=== PATIENT | female | born 1955 | race African-American/Black ===

== ENCOUNTER 2016-09-24 07:31 | Day surgery (SDC) | payer BC ==
[2016-09-23 12:17] LABS: HEMATOCRIT 37.4 % (36.0-48.0); HEMOGLOBIN 12.6 g/dL (12.0-16.0)
[2016-09-23 12:28] LABS: BUN (BLOOD UREA NITROGEN) 10 MG/DL (6-23); CALCIUM, SERUM 8.9 MG/DL (8.5-10.4); CHLORIDE, SERUM 105 MMOL/L (96-112); CO2 (CARBON DIOXIDE) 30 MMOL/L (24-34); CREATININE 0.76 MG/DL (0.55-1.02); GFR AFRICAN AMERICAN 100 ML/MIN (>=60); GFR NON AFRICAN AMERICAN 86 ML/MIN (>=60); POTASSIUM, SERUM 3.7 MMOL/L (3.5-5.3); SODIUM, SERUM 142 MMOL/L (135-148)
[2016-09-23 12:30] LABS: GLUCOSE, SERUM 103 MG/DL (60-99)
--- NOTE | ~2016-09-24 | OP ---
Record Of Operation [facility] [address] [place]. 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 ESTIMATED BLOOD LOSS: Less than 5 mL. DISPOSITION: Stable recovery room. ANESTHESIA: General with interscalene block augmentation for postoperative pain control. PREOPERATIVE DIAGNOSES: 1. Left shoulder pain. 2. Partial thickness rotator cuff tear. 3. Subacromial impingement. 4. Degenerative labrum. POSTOPERATIVE DIAGNOSES: 1. Left shoulder pain. 2. High-grade partial thickness articular sided/intralaminar supraspinatus rotator cuff tear. 3. Degenerative labral tear. 4. Glenohumeral joint chondromalacia/early osteoarthritis. 5. Subacromial impingement. 6. Acromioclavicular joint osteoarthritis with impingement. OPERATIVE PROCEDURES: 1. Left shoulder examination under anesthesia. 2. Left shoulder arthroscopy. 3. High-grade partial thickness articular sided and intralaminar supraspinatus rotator cuff repair. 4. Shaving chondroplasty of the glenohumeral joint. 5. Extensive debridement of degenerative labral tears anteriorly, superiorly, and posteriorly. 6. Subacromial decompression. 7. Distal clavicular coplaning. OPERATIVE NOTE: The diagnoses listed above as well as recommended surgical procedure, risks, benefits, thereof discussed in full detail with Analilia Lindsey and family on the morning of 09/24/2016. The patient and family asked appropriate questions, which were answered to their satisfaction. Informed consent was signed, witnessed, and placed in the chart. The left upper extremity was marked for confirmation and an interscalene block was placed by the anesthesia team with good success. The patient was then wheeled to the operative arena, where general anesthesia was administered. The patient was placed in lateral decubitus Record Of Operation [facility] [address] [place]. [address] NAME: TODD LINDSEY : 59 STATUS : [facility] PAT#: [id number] AGE: 60 ADM/REG DATE : 09/24/16 MR#: [id number] REPORT SERV DATE: 09/28/16 DICTATED BY: JOAQUIM DUMAS DATE: 09/25/16 REPORT STATUS : Draft TRANSCRIBED BY: CATRACHO DATE: 09/25/16 position with an axillary roll in place. All nonoperative extremities were well padded and secured for the duration of the case. The left upper extremity was examined under anesthesia and then placed in five pounds of longitudinal traction and prepped and draped in typical orthopedic sterile fashion. A surgical pause was performed confirming both the correct patient as well as the proper surgical site and procedure. All present were in agreement. The patient received appropriate antibiotics for perioperative antibiosis. All standard anatomic landmarks as well as arthroscopic portal sites were demarcated using a sterile marking pen. Then 15 mL of 0.5% Marcaine with epinephrine was injected into standard posterior, lateral, and anterior portal sites. An 11 blade was used to establish the posterior portal through which an arthroscopic cannula and blunt obturator were inserted atraumatically into the glenohumeral joint. A full diagnostic arthroscopy was performed. There was evidence for degenerative tearing of the labrum anteriorly, superiorly, and posteriorly. The biceps itself was in decent shape with mild tenosynovitis, but no evidence for significant tear or instability. The articular surface of the supraspinatus did show evidence for high-grade partial thickness tear with an unstable flap as well as a larger interlaminar split. The subscapularis, middle, and inferior glenohumeral ligaments were in decent condition. There was evidence for early degenerative glenohumeral joint osteoarthritis/chondromalacia. This was grade 2/3 in several areas. Using an inside-out approach, an anterior portal was established and dammed cannula was placed. Arthroscopic shaving chondroplasty was conducted of the glenohumeral joint removing all unstable chondral flaps and polishing the articular surface as smooth as possible. The labrum also showed evidence for degenerative tearing. A shaver was used to perform extensive debridement of all damaged labral tissue, trimming the labrum back down to a smooth rim flush with the articular surface of the glenoid. The under surface of the rotator cuff was then debrided of all damaged tissue and fully probed. There was a large intralaminar split traversed medially. A PDS suture was passed in a trans-cuff technique through the rotator cuff tendon bridging the intralaminar split. These sutures were then drawn out the subacromial space. The arthroscope was then withdrawn from the glenohumeral joint and inserted into the subacromial space. Using an outside-in spinal needle technique, a lateral portal was established and dammed cannula was placed. The bursal surface the rotator cuff showed moderate abrasion from subacromial impingement, but no evidence for full-thickness tearing. Our previously placed trans-cuff sutures were identified and tied off completing our rotator cuff repair and closing down the intralaminar split quite nicely. Next, all soft tissues were removed from the under surface of the acromion as well as the acromioclavicular joint. There was evidence for mechanical impingement on the bursal surface of the rotator cuff tendon as well as downward reflection of the distal clavicle. A subacromial decompression was performed without difficulty. A distal clavicular coplaning was conducted as well. This opened up the subacromial space nicely. At this juncture, all arthroscopic instruments, excess fluid, and debris were removed from the subacromial space. The portals were closed with 3-0 Monocryl in subcuticular layers and Steri-Strips on the skin. Sterile dressing was secured with Medipore tape. The patient was Record Of [address] [place]. [address] NAME: TODD LINDSEY BLUNT : 59 STATUS : [facility]#: [id number] AGE: 60 ADM/REG DATE : 09/24/16 MR#: [id number] REPORT SERV DATE: 09/28/16 DICTATED BY: JOAQUIM DUMAS DATE: 09/25/16 REPORT STATUS : Draft TRANSCRIBED BY: CATRACHO DATE: 09/25/16 placed in an UltraSling for temporary immobilization. She was then awakened from anesthesia without difficulty and transferred to the postanesthesia care in stable condition, where a postoperative exam was within normal limits understanding that her interscalene block was still in effect. A lengthy discussion was held with the patient's family, detailing all operative findings as well as procedures performed. All questions answered to their satisfaction. CCS/MODL Joaquim Dumas M.D. / [id number] CC: Jovita Friend M.D.
[~2016-09-24 07:31] MED LIST: CADUET5 MG/20 MG PO; CAT2 PO; CELEXA20 PO; CRESTOR20 MG PO; DETROLLA4 PO; DIOVAN HCT160 MG/25 PO; EFFEX75 PO; EZFE 200200 MG PO; GARLIC TABS; GARLIFE PO; GLUCPH PO; LEVOTHYROXIN75 MCG PO; LOP100 PO; MAXIMUM D PO; MEVACOR PO; MULTIVITAMI1 PO; NORCO1 TA2 PO; NORV5 PO; PROTONIX PO
== END 2016-09-24 16:34 | disposition home or self-care (01) ==
LOC: SDC 07:31
PROVIDERS: Specialist
PROC: 0RNK4ZZ Release Left Shoulder Joint, Percutaneous Endoscopic Approach (ICD-10-PCS; 2016-09-24)
PROC: 0LQ24ZZ Repair Left Shoulder Tendon, Percutaneous Endoscopic Approach (ICD-10-PCS; principal; 2016-09-24 09:30)
DX: S43.52XA Sprain of left acromioclavicular joint, initial encounter (principal); F17.210 Nicotine dependence, cigarettes, uncomplicated; I10 Essential (primary) hypertension; E78.5 Hyperlipidemia, unspecified; M19.90 Unspecified osteoarthritis, unspecified site; E03.9 Hypothyroidism, unspecified; E11.9 Type 2 diabetes mellitus without complications; F41.9 Anxiety disorder, unspecified; F32.9 Major depressive disorder, single episode, unspecified; N32.81 Overactive bladder; K21.9 Gastro-esophageal reflux disease without esophagitis; E78.00 Pure hypercholesterolemia, unspecified; Z79.899 Other long term (current) drug therapy; Z79.891 Long term (current) use of opiate analgesic; Z79.84 Long term (current) use of oral hypoglycemic drugs
CPT/HCPCS: 80048; 82962; 85014; 85018; 88304; 93005; J0330; J0690; J2250; J2710; J2795; J3010